=== PATIENT | male | born 1990 | race Caucasian/White ===

== ENCOUNTER 2019-04-10 22:13 | Emergency (ER) | payer OTHER ==
[2019-04-10 22:37] VITALS: BP 159/80; PULSE 94; RESP 16; TEMP 99.3
--- NOTE | 2019-04-10 23:15 | ED ---
General Adult HPI - General Chief complaint: Eye Problems Stated complaint: Bodily fluid in eye, [facility] Time Seen by Provider: 04/10/19 22:31 Source: patient Mode of arrival: ambulatory Limitations: no limitations - History of Present Illness Initial comments: 28 year-old male patient presents to the emergency department today for evaluation after body fluid exposure at work. 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 States he did flush the eye with water afterwards. He denies any difficulty with vision. Denies any pain to the eye. Patient is unsure if he has had hepatitis B vaccine. He denies any other injuries or concerns. - Related Data Home Medications Medication Instructions Recorded Confirmed No Known Home Medications 04/10/19 04/10/19 Allergies Allergy/AdvReac Type Severity Reaction Status Date / Time amoxicillin Allergy Unknown Verified 04/10/19 22:29 Review of Systems ROS Statement: Those systems with pertinent positive or pertinent negative responses have been documented in the HPI. ROS Other: All systems not noted in ROS Statement are negative. Past Medical History Past Medical History: No Reported History History of Any Multi-Drug Resistant Organisms: None Reported Past Surgical History: No Surgical Hx Reported Past Psychological History: No Psychological Hx Reported Smoking Status: Never smoker Past Alcohol Use History: None Reported Past Drug Use History: None Reported General Exam Limitations: no limitations General appearance: alert, in no apparent distress, other (This is a) Eye exam: Present: normal appearance, PERRL, EOMI, other (No drainage). Absent: scleral icterus, conjunctival injection, periorbital swelling ENT exam: Present: normal exam, normal oropharynx, mucous membranes moist Respiratory exam: Present: normal lung sounds bilaterally. Absent: respiratory distress, wheezes, rales, rhonchi, stridor Cardiovascular Exam: Present: regular rate, normal rhythm, normal heart sounds. Absent: systolic murmur, diastolic murmur, rubs, gallop, clicks GI/Abdominal exam: Present: soft, normal bowel sounds. Absent: distended, tenderness, guarding, rebound, rigid Neurological exam: Present: alert, oriented X3, CN II-XII intact Psychiatric exam: Present: normal affect, normal mood Skin exam: Present: warm, dry, intact, normal color. Absent: rash Course Vital Signs 04/10/19 22:33 Temperature 99.3 F Pulse Rate 94 Respiratory 16 Rate Blood Pressure 159/80 O2 Sat by Pulse 96 Oximetry Medical Decision Making - Medical Decision Making 28 year-old male patient presents to the emergency department today for ally luation after getting of vomiting in his left eye. Physical examination is unremarkable. Nursing staff did flush the eye. Labs were drawn for postexposure testing. Source was drawn for testing. Rapid HIV was negative. Patient was informed of results. We will discharge to follow up with employee health. Disposition Clinical Impression: Employee exposure to body fluids Disposition: HOME SELF-CARE Condition: Good Instructions (If sedation given, give patient instructions): Body Substance Exposure (ED) Additional Instructions: Follow up with employee health for further testing and immunization. Request Hep B vaccine. Return to the emergency department for any new, worsening, or concerning symptoms. Is patient prescribed a controlled substance at d/c from ED?: No Referrals: None,Stated [Primary Care Provider] - 1-2 days Time of Disposition: 23:15
[2019-04-11 11:58] LABS: Hepatitis C IgG Antibody Non-Reactive (Non-Reactive)
[2019-04-11 12:21] LABS: HIV 1 AB Non-Reactive (Non-Reactive); HIV AB P24 Non-Reactive (Non-Reactive); HIV P24 AG Non-Reactive (Non-Reactive)
== END 2019-04-10 23:34 | disposition home or self-care (01) ==
LOC: EC 22:13
DX: Z77.21 Contact with and (suspected) exposure to potentially hazardous body fluids (principal); Z88.0 Allergy status to penicillin
CPT/HCPCS: 36415; 86706; 86803; 87340; 87390; 99283